=== PATIENT | male | born 1940 | race Caucasian/White ===

== ENCOUNTER 2024-02-15 13:10 | Outpatient (CLI) | payer MEDICARE, SELFPAY ==
--- NOTE | ~2024-02-15 | PE_ITS ---
EXAMINATION: PET_PETPSMAST_PT DATE: 02/15/2024 15:35 INDICATION: Prostate cancer. TECHNIQUE: 4.898 mCi of Ga-68 gozetotide was administered intravenously. Low dose computed tomography (CT) images were acquired from the base of the brain to the proximal thighs for attenuation correcti on and anatomic localization. Automated exposure control was employed. Dose-length product (DLP) was 875 mGy-cm. Positron emission tomography (PET) images were acquired in the same distribution. COMPARISON: None FINDINGS: Head/neck: There are likely changes of ocular lens replacement surgeries. There are no pathologically enlarged lymph nodes. Chest: The lungs demonstrate mild atelectasis. No pleural effusion. Cardiomegaly is noted. No pericar dial effusion. There are coronary artery calcifications. There is mild bilateral gynecomastia. There is a small sliding hiatal hernia. Abdomen/pelvis/proximal thighs: The liver and spleen are normal. There are gallstones in the gallblad meño, which is contracted. The pancreas, adrenal glands, and right kidney are normal. There is a 15 mm mass in left kidney measuring soft tissue attenuation. There is calcified atherosclerosis of the aor ta and many of the other arteries. There are changes of prostatectomy. There is an 11 mm mass in the prostatectomy bed on the left with maximum SUV of 8.4. There are no dilated loops of bowel. There are no pathologically enlarged lymph nodes. There is no free intraperitoneal fluid. There is no osseous malignancy. IMPRESSION: 1. 11 mm mass in the prostatectomy bed on the left with increased activity, consistent with malignanc y. 2. 15 mm left kidney mass, which may be a hemorrhagic cyst, but renal cell carcinoma cannot be exclud ed. Abdomen CT or MRI without and with contrast is recommended. Reviewed, dictated and finalized at location A. IMPRESSION: 1. 11 mm mass in the prostatectomy bed on the left with increased activity, con sistent with malignancy. 2. 15 mm left kidney mass, which may be a hemorrhagic cyst, but renal cell carc inoma cannot be excluded. Abdomen CT or MRI without and with contrast is recomm ended.
== END 2024-02-15 13:11 | disposition home or self-care (01) ==
PROVIDERS: Visit Provider Urology
DX: C61 Malignant neoplasm of prostate (principal); R97.21 Rising PSA following treatment for malignant neoplasm of prostate; N28.89 Other specified disorders of kidney and ureter
CPT/HCPCS: 78815; A9596